=== PATIENT | male | born 1975 | race Two or more races ===

== ENCOUNTER 2018-11-25 17:08 | Emergency (ER) | payer OTHER, SELFPAY ==
[~2018-11-25] VITALS: Ht 165.1 cm; Wt 91.5 kg
[2018-11-25 17:13] VITALS: BP 141/96
== END 2018-11-25 18:24 | disposition home or self-care (01) ==
LOC: ED 18:18
DX: S06.320A Contusion and laceration of left cerebrum without loss of consciousness, initial encounter (principal); W18.30XA Fall on same level, unspecified, initial encounter; Y93.89 Activity, other specified; Y92.69 Other specified industrial and construction area as the place of occurrence of the external cause; Y99.8 Other external cause status
CPT/HCPCS: 12031; 90471; 90715; 99284